=== PATIENT | female | born 1985 | race Caucasian/White ===

== ENCOUNTER 2018-05-05 14:35 | Emergency (ER) | payer OTHER ==
[~2018-05-05] VITALS: Wt 65.8 kg
[~2018-05-05 14:35] MED LIST: ANAPROX DS550 MG PO; ANUSOL-HC25 MG RC; ASACOL400 MG PO; BACTRIM DS 8001 TA1 PO; CLARITIN-D 12 H1 TAB PO; CLARITIN10 MG PO; CLEOCIN HCL150 MG PO; CLEOCIN150 MG PO; CLINDAMYCIN HC300 MG PO; CLINDAMYCIN150 MG PO; DARVOCET N 1001 TAB PO; DOXYCYCLINE MO100 MG PO; EES400 MG PO; FLAGYL500 MG PO; GAS-X80 MG PO; HYDROCODONE BIT1 T11 PO; IRON90 MG PO; KEFLEX500 MG PO; KEFTAB500 MG PO; LEVOFLOXACIN500 MG PO; METRONIDAZOLE500 MG PO; MOTRIN600 MG PO; MOTRIN800 MG PO; NKHM; PERCOGESIC EXTR1 TAB PO; PRENATAL 1 MG +1 TAB PO; PRILOSEC20 M2 PO; PROTONIX40 M1 IV; SEPTRA DS1 TAB PO; TRAMADOL HCL50 MG PO; ULTRAM50 MG PO; VICODIN 5/500 505 MG PO; VICODIN 500 MG-1 TAB PO; VICODIN ES 7501 TAB PO; ZOO CHEWS1 CTB PO; Zofran4 MG PO
[2018-05-05 16:39] LABS: BILIRUBIN NEGATIVE (NEGATIVE); BLOOD NEGATIVE (NEGATIVE); CLARITY SL CLOUDY (CLEAR); COLOR YELLOW (YELLOW); GLUCOSE NEGATIVE (NEGATIVE); KETONE TRACE (NEGATIVE); LEUKO ESTERASE NEGATIVE (NEGATIVE); NITRITE NEGATIVE (NEGATIVE); UROBILINOGEN 0.2 E.U./dl (0.2-1.0)
[2018-05-05 16:51] LABS: BACTERIA TRACE
[2018-05-05] MEDS ORDERED: CYCLOBENZAPRINE10 MG PO (17:00)
[2018-05-05] MEDS ORDERED: NAPROSYN500 MG PO (17:00)
[2018-05-05] MEDS ORDERED: PREDNISONE50 MG PO (17:00)
== END 2018-05-05 17:03 | disposition home or self-care (01) ==
LOC: ED 14:35
PROVIDERS: Nurse Practitioner Family
DX: M54.5 Low back pain (principal); M62.830 Muscle spasm of back; M62.89 Other specified disorders of muscle; Z88.0 Allergy status to penicillin; Z88.1 Allergy status to other antibiotic agents; Z91.041 Radiographic dye allergy status

== ENCOUNTER 2019-02-28 10:25 | Inpatient (IN) | payer OTHER ==
[~2019-02-28] VITALS: Ht 162.5 cm; Wt 59.5 kg
--- NOTE | ~2019-02-28 | CON ---
[place], [place] REPORT OF CONSULTATION NAME: ALLY BROWNING UNIT #: [id number] ROOM: 415 DOCTOR: VERENA GRIFFINDAYNA BIRTHDATE: [birth year] DOS: 02/28/2019 GASTROENDOSCOPIC REPORT HISTORY OF PRESENT ILLNESS: A 33-year-old patient who has presented with chief complaint of abdominal pain, diarrhea, cramp, undergoing investigation. The patient is telling me that she has a history of ulcerative colitis. I have not been able to document that. We referred to the old colonoscopy on 01/06/2015 and we found out benign esophageal stricture and in past had dilation. I have not been able to find detail result. White blood cell was 11, H and H of 11 and 34. Lactic acid was normal. Comprehensive metabolic panel, GFR greater than 60. Chemistry normal. Sed rate was 14. CT scan of the abdomen and pelvis, no acute process. PAST MEDICAL HISTORY: History of diverticulosis, history of esophageal stricture, status post benign dilation, back pain, dyspepsia, vertigo, and diabetes mellitus. PAST SURGICAL HISTORY: Hemorrhoid, appendix, bilateral tubal ligation, and colonoscopies. SOCIAL HISTORY: Nonsmoker, nonalcohol consumer. FAMILY HISTORY: Noncontributory. ALLERGIES: Multiple. MEDICATIONS: Listed. REVIEW OF SYSTEMS: HEENT: Denies double vision, blurred vision. RESPIRATORY: Denies shortness of breath. CARDIOVASCULAR: Denies chest pain. DIGESTIVE SYSTEM: Diarrhea, abdominal cramp. PHYSICAL EXAMINATION: VITAL SIGNS: Stable. HEENT: Within normal limits. NECK: Supple, no thyromegaly. CHEST: Symmetric anatomy, equal expansion. HEART: Normal sinus rhythm, no gallop, no murmur. ABDOMEN: Soft. No hepato-organomegaly. Bowel sounds present. EXTREMITIES: No cyanosis, no pedal edema. NEUROLOGIC: Alert, oriented to time, place. LABORATORY DATA: Reviewed. Records reviewed. IMPRESSION AND PLAN: Diarrhea, etiology to be defined. We are going to send stool for C. diff, stool culture, ova and parasite tomorrow. Stool sample has been collected already this evening. Also, we know that she has history of [place], [place] REPORT OF CONSULTATION NAME: ALLY BROWNING UNIT #: [id number] ROOM: [facility] DOCTOR: VERENA GRIFFIN,RUKHSANARAYNE BIRTHDATE: [birth year] diverticulosis. She is telling me she had ulcerative colitis. She has never been on the medication. I really doubt that has been the diagnosis at any time for her, however, we are under investigation. Once we rule out that she does not have infectious diagnosis, we will proceed with further studies. Furthermore, I am going to discontinue the cefepime that she is on rather we are going to start her on metronidazole 500 mg IV every 8 hours and we are going to give her something to eat till we decide the direction. If she stabilizes as far as her diarrhea, then we can discharge her and do an outpatient colonoscopy otherwise, we will see the etiology of culture and diarrhea. DAYNA ALBARADO MD CM:CONSTR:REPORT OF CONSULTATION 33 03/07/19 1014 interface
[~2019-02-28 10:25] MED LIST changes: +CYCLOBENZAPRINE10 MG PO; +NAPROSYN500 MG PO; +PREDNISONE10 MG PO; +PREDNISONE50 MG PO
[2019-02-28 10:29] VITALS: BP 110/70
[2019-02-28 10:57] LABS: BILIRUBIN NEGATIVE (NEGATIVE); BLOOD 3+ (NEGATIVE); CLARITY SL CLOUDY (CLEAR); COLOR YELLOW (YELLOW); GLUCOSE NEGATIVE (NEGATIVE); KETONE NEGATIVE (NEGATIVE); LEUKO ESTERASE TRACE (NEGATIVE); NITRITE NEGATIVE (NEGATIVE); PH >= 9.0 (5.0-9.0); UROBILINOGEN 0.2 E.U./dl (0.2-1.0)
[2019-02-28 11:13] LABS: RBC TNTC rbc/hpf (0-2)
[2019-02-28 11:14] LABS: BACTERIA 1+; EPITHELIAL CELLS 30-40
[2019-02-28 11:16] LABS: BASO % 0.4 % (0.0-1.0); EOS # 0.2 10*3/uL (0.0-0.4); EOS % 1.4 % (1.0-4.0); HEMATOCRIT 34.1 % (37.0-47.0); LYMPH # 1.7 10*3/uL (1.3-4.4); LYMPH % 15.1 % (27.0-41.0); MEAN CELL VOLUME 86.3 fl (81.0-99.0); MEAN CORPUSCULAR HGB 27.8 pg (27.0-31.0); MEAN CORPUSCULAR HGB CONC 32.3 g/dl (33.0-37.0); MEAN PLATELET VOLUME 11.3 fl (9.6-12.3); MONO # 0.9 10*3/uL (0.1-1.0); MONO % 7.8 % (3.0-9.0); NEUT # 8.2 10*3/uL (2.3-7.9); NEUT % 74.7 % (47.0-73.0); PLATELET COUNT AUTOMATED 214 10*3/uL (130-400); RED BLOOD COUNT 3.95 10*6/uL (4.10-5.10); RED CELL DISTRI WIDTH 13.4 % (0-14.5)
[2019-02-28 11:16] LABS: WBC 21-30 wbc/hpf (0-5)
[2019-02-28 11:32] LABS: ALBUMIN 3.3 gm/dl (3.1-4.5); ALKALINE PHOSPHATASE 48 U/L (45-117); BUN 12 mg/dl (7-24); CHLORIDE 110 mmol/L (98-107); CREATININE 0.93 mg/dL (0.55-1.02); LIPASE 158 U/L (73-393); POTASSIUM 3.5 mmol/L (3.5-5.1); SGOT/AST 16 IU/L (3-35); SGPT/ALT 20 U/L (12-78); SODIUM 139 mmol/L (136-145); TOTAL PROTEIN 6.7 gm/dL (6.4-8.2)
[2019-02-28 11:33] LABS: BETA-HCG, QUANT < 1.0 mIU/mL (1-3)
[2019-02-28 11:40] VITALS: BP 110/68
[2019-02-28 12:30] VITALS: BP 110/70
[2019-02-28 12:45] VITALS: BP 108/62
--- NOTE | 2019-02-28 12:45 | NUR ---
Time: 1244 A 33 year old FEMALE admitted to under services of GEOFFREY FERNANDEZ DO. Pt. arrived via wheel chair from ER. Chief complaint: ABDOMINAL PAIN,NAUSEA&VOMITTING. JAIRO BALDWIN
--- NOTE | 2019-02-28 13:49 | NUR ---
PATIENT MEDICATED WITH MORPHINE PER DRS ORDERS FOR COMPLAINTS OF ABDOMINAL PAIN 12/09. WILL MONITOR FOR RELIEF
[2019-02-28 16:00] VITALS: BP 105/66
--- NOTE | 2019-02-28 16:40 | NUR ---
BACK TO ROOM FROM CT.
[2019-02-28 20:00] VITALS: BP 103/61
--- NOTE | 2019-02-28 20:40 | NUR ---
ORDER TO ADD STOOL CULTURE TO LAB STUDIES AND STOP CEFIPIME BY . SEE ORDERS. CALL WITH RESULTS IN AM IF COLLECTED.
--- NOTE | 2019-02-28 23:00 | NUR ---
PATIENT RESTING IN BED, STATES HER ABDOMINAL PAIN COMES AND GOES, DENIED THE NEED FOR PAIN MEDICINE. IVF AND ANTIBIOTICS RUNNING. PATIENT LEFT WITH CALL LIGHT IN REACH.
[2019-03-01] VITALS: BP 108/58
--- NOTE | 2019-03-01 00:50 | NUR ---
24 HR chart check completed.
[2019-03-01 07:11] LABS: BUN 6 mg/dl (7-24); CHLORIDE 114 mmol/L (98-107); CHOLESTEROL 122 mg/dL (<200); CREATININE 0.91 mg/dL (0.55-1.02); HDL CHOLESTEROL 46 mg/dl (40-60); LDL CHOLESTEROL 61 mg/dL (9-159); POTASSIUM 3.7 mmol/L (3.5-5.1); SODIUM 142 mmol/L (136-145); TRIGLYCERIDES 73 mg/dl (<150); VLDL CHOLESTEROL 15 mg/dL (6-40)
[2019-03-01 07:17] LABS: BASO % 0.4 % (0.0-1.0); EOS # 0.3 10*3/uL (0.0-0.4); EOS % 3.7 % (1.0-4.0); HEMATOCRIT 30.5 % (37.0-47.0); HEMOGLOBIN 9.5 g/dl (12.0-16.0); LYMPH # 2.5 10*3/uL (1.3-4.4); LYMPH % 28.7 % (27.0-41.0); MEAN CELL VOLUME 89.2 fl (81.0-99.0); MEAN CORPUSCULAR HGB 27.8 pg (27.0-31.0); MEAN CORPUSCULAR HGB CONC 31.1 g/dl (33.0-37.0); MEAN PLATELET VOLUME 11.8 fl (9.6-12.3); MONO # 0.7 10*3/uL (0.1-1.0); MONO % 7.7 % (3.0-9.0); NEUT % 58.7 % (47.0-73.0); PLATELET COUNT AUTOMATED 169 10*3/uL (130-400); RED BLOOD COUNT 3.42 10*6/uL (4.10-5.10); RED CELL DISTRI WIDTH 13.9 % (0-14.5); WHITE BLOOD COUNT 8.6 10*3/uL (4.8-10.8)
[2019-03-01 08:00] VITALS: BP 102/55
[2019-03-01 08:02] LABS: VITAMIN D, 25-HYDROXY 29.1 ng/mL (30-100)
--- NOTE | 2019-03-01 08:33 | NUR ---
NOTIFIED DR ALBARADO OF AM LAB RESULTS AND REQUESTED A DIET ORDER FOR PT. ORDERS REC IEVED.PT TO F/U FOR OUTPATIENT COLO ON D/C.SPOKE WITH DR FANG REGARDING DIET ORDER AND FINE CRACKLES NOTED IN PB LUNG RAMOS.NORMAL SALINE INFUSING @ 100 ML/HR.
--- NOTE | 2019-03-01 10:00 | NUR ---
PT ATE BREAKFAST AND DENIES N/V AND ABDOMINAL PAIN.SEEMED TO TOLERATE WELL.
[2019-03-01 12:00] VITALS: BP 110/59
--- NOTE | 2019-03-01 13:49 | NUR ---
PT ATE LUNCH AND REPORTED NO C/O. DENIES N/V.NOTIFIED DR FANG PT HAD TOLERATED 2 MEALS WITHOUT C/O.
[2019-03-01 16:00] VITALS: BP 109/57
--- NOTE | 2019-03-01 18:02 | NUR ---
PATIENT COMPLAINTS OF HEADACHE 12/09. MEDICATED PER ORDER. VERBALIZED RELIEF. VOICES NO OTHER CONCERNS AT THIS TIME. CALL LIGHT WITH IN REACH. RESTING IN BED.
--- NOTE | 2019-03-01 19:45 | NUR ---
TYLENOL GIVEN PER PRN ORDER FOR C/O HEADACHE. SEE EMAR. RATED PAIN A 3/10 WITH 10 BEING THE WORST.
[2019-03-01 20:00] VITALS: BP 99/56
--- NOTE | 2019-03-01 23:41 | NUR ---
PATIENT REQUESTING PAIN MEDICATION FOR HEADACHE. NORCO ADMINISTERED PRESCRIBED. WILL MONITOR FOR EFFECTIVENESS.
[2019-03-02] VITALS: BP 102/50
--- NOTE | 2019-03-02 00:30 | NUR ---
PATIENT RESTING QUIETLY. MEDICATION APPEARS EFFECTIVE.
--- NOTE | 2019-03-02 01:43 | NUR ---
TUMS GIVEN FOR C/O DYSPEPSIA. PATIENT HAS HAD EMESIS OF MOSTLY LIQUID.
--- NOTE | 2019-03-02 01:56 | NUR ---
PATIENT MEDICATED WITH ZOFRAN PER PRN ODER FOR C/O NAUSEA. SEE EMAR,
[2019-03-02 06:06] LABS: BASO % 0.3 % (0.0-1.0); EOS # 0.2 10*3/uL (0.0-0.4); EOS % 2.1 % (1.0-4.0); HEMATOCRIT 32.8 % (37.0-47.0); HEMOGLOBIN 10.2 g/dl (12.0-16.0); LYMPH # 1.7 10*3/uL (1.3-4.4); LYMPH % 16.5 % (27.0-41.0); MEAN CELL VOLUME 89.1 fl (81.0-99.0); MEAN CORPUSCULAR HGB 27.7 pg (27.0-31.0); MEAN CORPUSCULAR HGB CONC 31.1 g/dl (33.0-37.0); MEAN PLATELET VOLUME 11.7 fl (9.6-12.3); MONO # 0.8 10*3/uL (0.1-1.0); MONO % 7.6 % (3.0-9.0); NEUT # 7.4 10*3/uL (2.3-7.9); NEUT % 72.9 % (47.0-73.0); PLATELET COUNT AUTOMATED 166 10*3/uL (130-400); RED BLOOD COUNT 3.68 10*6/uL (4.10-5.10); RED CELL DISTRI WIDTH 13.9 % (0-14.5); WHITE BLOOD COUNT 10.2 10*3/uL (4.8-10.8)
[2019-03-02 08:00] VITALS: BP 105/57
--- NOTE | 2019-03-02 08:35 | NUR ---
PATIENT COMPLAINS OF NAUSEA. MEDICATED PER ORDER WITH ZOFRAN. VOICES NO OTHER CONCERNS AT THIS TIME. RESTING IN BED. CALL LIGHT WITHIN REACH.
--- NOTE | 2019-03-02 09:37 | NUR ---
PATIENT COMPLAINS OF 6/10 ABDOMINAL PAIN. MEDICATED PER ORDER. VOICES NO OTHER CONCERNS AT THIS TIME. CALL LIGHT WITHIN REACH. PATIENT RESTING IN BED.
[2019-03-02] MEDS ORDERED: FLAGYL500 MG PO (12:12)
--- NOTE | 2019-03-02 13:29 | NUR ---
PATIENTS COMPLAINTS OF ABDOMINAL PAIN 11/08. MEDICATED PER ORDER. VERBALIZED RELIEF. VOICES NO OTHER NEEDS AT THIS TIME. CALL LIGHT WITHIN REACH. IN BED WATCHING TV AT THIS TIME.
--- NOTE | 2019-03-02 13:54 | NUR ---
Discharge instructions reviewed with patient/family. Patient receptive and verbalizes understanding. Follow-up care arranged. Written instructions given to patient/family. ZAC YOUNG
== END 2019-03-02 13:55 | disposition home or self-care (01) | DRG 392 ==
LOC: ED 10:25 → EDHOLD 11:57 → 4E 12:06
PROVIDERS: Emergency Medicine; Hospitalist; Internal Medicine; ADMIT Internal Medicine
DX: K52.9 Noninfective gastroenteritis and colitis, unspecified (principal); D64.9 Anemia, unspecified; D72.829 Elevated white blood cell count, unspecified; E87.8 Other disorders of electrolyte and fluid balance, not elsewhere classified; E83.41 Hypermagnesemia; K57.90 Diverticulosis of intestine, part unspecified, without perforation or abscess without bleeding; E11.9 Type 2 diabetes mellitus without complications; K21.9 Gastro-esophageal reflux disease without esophagitis; Z98.51 Tubal ligation status; Z82.49 Family history of ischemic heart disease and other diseases of the circulatory system; Z88.0 Allergy status to penicillin; Z88.8 Allergy status to other drugs, medicaments and biological substances; Z79.899 Other long term (current) drug therapy; Z91.041 Radiographic dye allergy status

== ENCOUNTER 2019-07-04 16:07 | Emergency (ER) | payer OTHER ==
[~2019-07-04] VITALS: Ht 162.5 cm; Wt 54.4 kg
[2019-07-04] MEDS ORDERED: TESSALON PERLE100 M1 PO (19:13)
[2019-07-04] MEDS ORDERED: IBUPROFEN600 MG PO (19:13)
== END 2019-07-04 19:23 | disposition home or self-care (01) ==
LOC: ED 16:07
DX: R50.9 Fever, unspecified (principal); R52 Pain, unspecified; R05 Cough; K21.9 Gastro-esophageal reflux disease without esophagitis; Z88.0 Allergy status to penicillin; Z88.1 Allergy status to other antibiotic agents; Z91.041 Radiographic dye allergy status

== ENCOUNTER 2019-07-09 16:08 | Emergency (ER) | payer OTHER ==
[~2019-07-09] VITALS: Ht 162.5 cm; Wt 59.0 kg
[~2019-07-09 16:08] MED LIST changes: +IBUPROFEN600 MG PO; +TESSALON PERLE100 M1 PO
[2019-07-09] MEDS ORDERED: PREDNISONE20 M1 PO (19:03)
[2019-07-09] MEDS ORDERED: PROAIR HFA8.5 GM INH (19:03)
== END 2019-07-09 19:16 | disposition home or self-care (01) ==
LOC: ED 16:08
DX: R05 Cough (principal); R06.02 Shortness of breath; K21.9 Gastro-esophageal reflux disease without esophagitis; Z88.0 Allergy status to penicillin; Z88.1 Allergy status to other antibiotic agents; Z91.041 Radiographic dye allergy status; Z79.899 Other long term (current) drug therapy

== ENCOUNTER 2019-09-07 18:58 | Emergency (ER) | payer OTHER ==
[~2019-09-07] VITALS: Ht 162.5 cm; Wt 54.4 kg
[~2019-09-07 18:58] MED LIST changes: +PREDNISONE20 M1 PO; +PROAIR HFA8.5 GM INH
[2019-09-07] MEDS ORDERED: FLONASE ALLERG9.9 ML NAS (20:36)
[2019-09-07] MEDS ORDERED: VIBRAMYCIN100 MG PO (20:36)
== END 2019-09-07 20:55 | disposition home or self-care (01) ==
LOC: ED 18:58
DX: J32.9 Chronic sinusitis, unspecified (principal); Z88.0 Allergy status to penicillin; Z88.8 Allergy status to other drugs, medicaments and biological substances; Z79.2 Long term (current) use of antibiotics; Z79.899 Other long term (current) drug therapy

== ENCOUNTER 2019-10-26 16:34 | Emergency (ER) | payer OTHER ==
[~2019-10-26] VITALS: Ht 162.5 cm; Wt 59.0 kg
[~2019-10-26 16:34] MED LIST changes: +FLONASE ALLERG9.9 ML NAS; +VIBRAMYCIN100 MG PO
[2019-10-26] MEDS ORDERED: PRILOSEC20 M1 PO (17:13)
[2019-10-26] MEDS ORDERED: CLINDAMYCIN HC300 MG PO (17:13)
== END 2019-10-26 17:15 | disposition home or self-care (01) ==
LOC: ED 16:34
DX: K02.9 Dental caries, unspecified (principal); Z79.899 Other long term (current) drug therapy; Z88.0 Allergy status to penicillin; Z88.8 Allergy status to other drugs, medicaments and biological substances

== ENCOUNTER 2020-04-15 10:31 | Emergency (ER) | payer OTHER ==
[~2020-04-15] VITALS: Wt 61.7 kg
[~2020-04-15 10:31] MED LIST changes: +PRILOSEC20 M1 PO
[2020-04-15] MEDS ORDERED: IBUPROFEN600 MG PO (12:13)
== END 2020-04-15 12:15 | disposition home or self-care (01) ==
LOC: ED 10:31
DX: B27.90 Infectious mononucleosis, unspecified without complication (principal); Z88.0 Allergy status to penicillin; Z88.8 Allergy status to other drugs, medicaments and biological substances; Z79.899 Other long term (current) drug therapy

== ENCOUNTER 2020-06-08 22:27 | Inpatient (IN) | payer OTHER ==
[~2020-06-08] VITALS: Ht 162.6 cm; Wt 58.1 kg
[2020-06-08 22:38] VITALS: BP 109/70
[2020-06-08 23:45] LABS: BASO % 0.2 % (0.0-1.0); EOS # 0.1 10*3/uL (0.0-0.4); EOS % 0.6 % (1.0-4.0); HEMATOCRIT 35.3 % (37.0-47.0); LYMPH # 1.1 10*3/uL (1.3-4.4); LYMPH % 7.9 % (27.0-41.0); MEAN CELL VOLUME 85.7 fl (81.0-99.0); MEAN CORPUSCULAR HGB 26.9 pg (27.0-31.0); MEAN CORPUSCULAR HGB CONC 31.4 g/dl (33.0-37.0); MONO # 0.6 10*3/uL (0.1-1.0); MONO % 3.9 % (3.0-9.0); NEUT # 12.5 10*3/uL (2.3-7.9); NEUT % 86.9 % (47.0-73.0); PLATELET COUNT AUTOMATED 235 10*3/uL (130-400); RED BLOOD COUNT 4.12 10*6/uL (4.10-5.10); RED CELL DISTRI WIDTH 14.2 % (0-14.5); WHITE BLOOD COUNT 14.4 10*3/uL (4.8-10.8)
[2020-06-09 00:01] LABS: ALBUMIN 3.4 gm/dl (3.1-4.5); ALKALINE PHOSPHATASE 72 U/L (45-117); BUN 16 mg/dl (7-24); CHLORIDE 107 mmol/L (98-107); CREATININE 0.87 mg/dL (0.55-1.02); LIPASE 145 U/L (73-393); POTASSIUM 4.1 mmol/L (3.5-5.1); SGOT/AST 31 IU/L (3-35); SGPT/ALT 30 U/L (12-78); SODIUM 138 mmol/L (136-145); TOTAL PROTEIN 7.3 gm/dL (6.4-8.2)
[2020-06-09 00:43] LABS: BILIRUBIN Negative (Negative); BLOOD Negative (Negative); CLARITY Clear (Clear); COLOR Yellow (Yellow); GLUCOSE Negative (Negative); KETONE Negative (Negative); LEUKO ESTERASE Negative (Negative); NITRITE Negative (Negative); SPECIFIC GRAVITY 1.015 (1.001-1.030); UROBILINOGEN 0.2 E.U./dl (0.0-1.0)
[2020-06-09 00:54] LABS: BACTERIA 1+; EPITHELIAL CELLS 21-30; RBC 0-2 rbc/hpf (0-2); WBC 0-2 wbc/hpf (0-5)
[2020-06-09 01:22] VITALS: BP 110/72
[2020-06-09 03:31] LABS: BASO % 0.3 % (0.0-1.0); EOS % 0.1 % (1.0-4.0); HEMATOCRIT 34.4 % (37.0-47.0); LYMPH # 1.5 10*3/uL (1.3-4.4); LYMPH % 11.1 % (27.0-41.0); MEAN CELL VOLUME 85.6 fl (81.0-99.0); MEAN CORPUSCULAR HGB 26.4 pg (27.0-31.0); MEAN CORPUSCULAR HGB CONC 30.8 g/dl (33.0-37.0); MEAN PLATELET VOLUME 11.3 fl (9.6-12.3); MONO # 0.6 10*3/uL (0.1-1.0); MONO % 4.3 % (3.0-9.0); NEUT # 11.7 10*3/uL (2.3-7.9); NEUT % 83.8 % (47.0-73.0); PLATELET COUNT AUTOMATED 229 10*3/uL (130-400); RED BLOOD COUNT 4.02 10*6/uL (4.10-5.10); RED CELL DISTRI WIDTH 14.1 % (0-14.5); WHITE BLOOD COUNT 13.9 10*3/uL (4.8-10.8)
--- NOTE | 2020-06-09 03:44 | NUR ---
CLAIRIFIED WITH ABOUT THE CEFIPINE AND MADE AWARE. LISA COCHRAN RN
[2020-06-09 03:47] LABS: ALBUMIN 3.5 gm/dl (3.1-4.5); ALKALINE PHOSPHATASE 71 U/L (45-117); BUN 14 mg/dl (7-24); CHLORIDE 108 mmol/L (98-107); CREATININE 0.81 mg/dL (0.55-1.02); POTASSIUM 3.6 mmol/L (3.5-5.1); SGOT/AST 24 IU/L (3-35); SGPT/ALT 33 U/L (12-78); SODIUM 140 mmol/L (136-145); TOTAL PROTEIN 7.3 gm/dL (6.4-8.2)
[2020-06-09 07:43] LABS: VITAMIN D, 25-HYDROXY 33.2 ng/mL (30-100)
[2020-06-09 08:31] VITALS: BP 100/40
--- NOTE | 2020-06-09 08:32 | NUR ---
PT ASSISTED UP TO BR---MAK LAMBERT RN
--- NOTE | 2020-06-09 10:10 | NUR ---
Time: 1009 A 35 year old FEMALE admitted to 5E under services of NINI LOPEZ DO Pt. arrived via stretcher from ER. Chief complaint: ABD PAIN . MICHA JACKSON
[2020-06-09] MEDS ORDERED: PEPCID20 MG PO (10:26)
[2020-06-09] MEDS ORDERED: IBGARD90 MG PO (10:26)
--- NOTE | 2020-06-09 11:14 | NUR ---
dr myrick and dr zaragoza here to see pt
[2020-06-09 12:00] VITALS: BP 102/54
--- NOTE | 2020-06-09 13:49 | NUR ---
RAHEEM-S in to talk to patient. Patient states lives at home with father. There are 8 steps in the home. Physician: Dominic Lopez Pharmacy: [facility] Home health services: no Patient's level of ADLs: INDEPENDENT Patient has working utilities: yes DME: none Follow-up physician's appointment after d/c: [facility] Does patient want to access [facility]?: no Discharge plan Pt resides with her father. Anticipate no discharge needs.. HAN ADAMS
--- NOTE | 2020-06-09 14:06 | NUR ---
PT REQUESTED AND GIVEN NORCO FOR C/O ABD PAIN PT RATES PAIN 5/10 WILL MONITOR
--- NOTE | 2020-06-09 15:00 | NUR ---
PT STATES THAT [employer] HELPED WILL MONITOR
[2020-06-09 16:00] VITALS: BP 11/49; BP 111/49
[2020-06-09 20:00] VITALS: BP 111/63
--- NOTE | 2020-06-09 20:20 | NUR ---
RESTING IN BED WITH NO DISTRESS NOTED. RESPIRATIONS EASY. LUNGS DIMINISHED, CLEAR. PULSE OX 98% RA. ABD SOFT WITH HYPO BOWEL SOUNDS, C/O DIARRHEA AND LOWER ABD PAIN. CALL LIGHT WITHIN REACH. NO VOICED COMPLAINTS
--- NOTE | 2020-06-09 20:46 | NUR ---
24 HR chart check completed.
--- NOTE | 2020-06-09 21:17 | NUR ---
MEDICATED WITH NORCO PER PRN ORDER FOR COMPLAINTS OF LOWER ABD PAIN RATING A 6. CALL LIGHT WITHIN REACH. WILL MONITOR
--- NOTE | 2020-06-09 22:00 | NUR ---
STATES RELIEF FROM EARLIER NORCO. CALL LIGHT WITHIN REACH.
[2020-06-10] VITALS: BP 106/53
--- NOTE | 2020-06-10 | NUR ---
SLEEPING. NO S/S DISTRESS. RESPIRATIONS EASY. VSS. CALL LIGHT WITHIN REACH
--- NOTE | 2020-06-10 02:53 | NUR ---
MEDICATED WITH NORCO PER PRN ORDER FOR COMPLAINTS OF ABD PAIN RATING A 4. WILL MONITOR
--- NOTE | 2020-06-10 03:30 | NUR ---
STATES RELIEF FROM EARLIER MEDS
[2020-06-10 06:14] LABS: BASO % 0.3 % (0.0-1.0); EOS # 0.3 10*3/uL (0.0-0.4); EOS % 4.2 % (1.0-4.0); HEMATOCRIT 31.9 % (37.0-47.0); LYMPH # 2.8 10*3/uL (1.3-4.4); LYMPH % 35.6 % (27.0-41.0); MEAN CELL VOLUME 87.6 fl (81.0-99.0); MEAN CORPUSCULAR HGB 26.6 pg (27.0-31.0); MEAN CORPUSCULAR HGB CONC 30.4 g/dl (33.0-37.0); MEAN PLATELET VOLUME 11.4 fl (9.6-12.3); MONO # 0.5 10*3/uL (0.1-1.0); MONO % 6.8 % (3.0-9.0); NEUT # 4.1 10*3/uL (2.3-7.9); NEUT % 52.8 % (47.0-73.0); PLATELET COUNT AUTOMATED 190 10*3/uL (130-400); RED BLOOD COUNT 3.64 10*6/uL (4.10-5.10); RED CELL DISTRI WIDTH 14.4 % (0-14.5); WHITE BLOOD COUNT 7.8 10*3/uL (4.8-10.8)
[2020-06-10 06:25] LABS: BUN 11 mg/dl (7-24); CHLORIDE 109 mmol/L (98-107); POTASSIUM 3.7 mmol/L (3.5-5.1); SODIUM 139 mmol/L (136-145)
[2020-06-10 08:00] VITALS: BP 104/55
--- NOTE | 2020-06-10 09:16 | NUR ---
In reviewing pt's H&P, read that pt is unable to obtain Linzess for her IBS due to the high cost. A call was placed to [facility] pharmacy to confirm that Linzess is covered under the 340B program, which it is. Met with pt to discuss this. Explained the program to pt. Pt is agreeable to follow-up at the [facility] and use the [facility] outpt pharmacy. Will inform hospitalist of this.
--- NOTE | 2020-06-10 10:26 | NUR ---
PT REQUESTED AND GIVEN ZOFRAN FOR C/O NAUSEA. WILL MONITOR
--- NOTE | 2020-06-10 10:59 | NUR ---
[place] in morning meeting that [facility], where pt follows for PCP, should have 340B program. Confirmed that [facility] is affiliated with [facility] which has the 340B program. Spoke to pharmacist at [facility] who confirmed that pt would need script from [facility] for Linzess to be covered under 340B. Will inform pt of this.
--- NOTE | 2020-06-10 11:00 | NUR ---
PT STATES THAT ZOFRAN DID NOT HELP WILL MONITOR
[2020-06-10 12:00] VITALS: BP 118/63
--- NOTE | 2020-06-10 14:23 | NUR ---
PT GIVEN EXTRA DOSE OF ZOFRAN FOR C/O NAUSEA WILL MONITOR
--- NOTE | 2020-06-10 14:52 | NUR ---
Met with pt and informed her of the 340B program through [employer] [facility] and [facility]. Pt stated that she would rather be followed at the [facility] and [facility] Out[facility].
--- NOTE | 2020-06-10 15:00 | NUR ---
PT STATES THAT ZOFRAN HELPED A LITTLE
[2020-06-10 16:00] VITALS: BP 111/52
--- NOTE | 2020-06-10 16:38 | NUR ---
PT REQUESTED AND GIVEN NORCO FOR C/O ABD PAIN WILL MONITOR
--- NOTE | 2020-06-10 17:10 | NUR ---
PT STATES THAT [employer] HELPED WILL MONITOR
[2020-06-10 20:00] VITALS: BP 115/57
--- NOTE | 2020-06-10 20:53 | NUR ---
PT RESTING IN BED. RESP-EASY AND REGULAR. C/O NAUSEA, MEDICATED WITH ZOFRAN IV PER PRN ORDER SEE EMAR. EXPLAINED NPO STATUS AFTER MIDNIGHT TO PT. CALL LIGHT IN REACH.
--- NOTE | 2020-06-10 21:50 | NUR ---
PT RESTING IN BED. NO NEW C/O. PT SLOWLY DRINKING PREP FOR TOMORROW. SHE HAD ALREADY DRANK HALF OF BOTTLE. STATES STILL NAUSEOUS AND MEDICATING PER EMAR.
[2020-06-11] VITALS (7 sets, daily range): BP systolic 111–128; BP diastolic 55–74
--- NOTE | 2020-06-11 01:00 | NUR ---
RESTING IN BED. PT UP TO BATHROOM NOTED SMALL AMOUNT RED BLOOD ON TOILET PAPER WHEN WIPED. YELLOW LIQUID STOOL NOTED IN COMMODE. NO C/O AT THIS TIME. CALL LIGHT IN REACH. SEE SHIFT ASSESSMENT.
--- NOTE | 2020-06-11 06:00 | NUR ---
SLEEPING IN BED. AWAKENS EASILY. PT UP TO BATHROOM WITH LIQUID CLEAR BM. NO C/O AT THIS TIME. CALL LIGHT IN REACH. BACK IN BED AT THIS TIME.
[2020-06-11 06:38] LABS: BASO % 0.4 % (0.0-1.0); EOS # 0.3 10*3/uL (0.0-0.4); EOS % 3.3 % (1.0-4.0); HEMATOCRIT 32.9 % (37.0-47.0); LYMPH # 2.4 10*3/uL (1.3-4.4); LYMPH % 25.7 % (27.0-41.0); MEAN CELL VOLUME 86.4 fl (81.0-99.0); MEAN CORPUSCULAR HGB 26.5 pg (27.0-31.0); MEAN CORPUSCULAR HGB CONC 30.7 g/dl (33.0-37.0); MEAN PLATELET VOLUME 11.5 fl (9.6-12.3); MONO # 0.7 10*3/uL (0.1-1.0); MONO % 7.9 % (3.0-9.0); NEUT # 5.8 10*3/uL (2.3-7.9); NEUT % 62.3 % (47.0-73.0); PLATELET COUNT AUTOMATED 203 10*3/uL (130-400); RED BLOOD COUNT 3.81 10*6/uL (4.10-5.10); RED CELL DISTRI WIDTH 14.2 % (0-14.5); WHITE BLOOD COUNT 9.3 10*3/uL (4.8-10.8)
[2020-06-11 06:50] LABS: BUN 9 mg/dl (7-24); CHLORIDE 108 mmol/L (98-107); CREATININE 0.82 mg/dL (0.55-1.02); POTASSIUM 3.5 mmol/L (3.5-5.1); SODIUM 140 mmol/L (136-145)
--- NOTE | 2020-06-11 11:56 | NUR ---
Attempted to meet with pt this AM. However, pt was out of the room for a procedure.
[2020-06-11] MEDS ORDERED: SULFASALAZINE500 M1 PO (13:02)
[2020-06-11] MEDS ORDERED: NATURE'S BLEND F1 MG PO (13:02)
--- NOTE | 2020-06-11 13:11 | NUR ---
Spoke with Pt. in her room regarding Follow up importance at [facility]. Pt. to follow with [facility] for Her Linzess Rx. Pt. will need script at [facility] at discharge.
[2020-06-11] MEDS ORDERED: IBGARD90 MG PO (15:52)
[2020-06-11] MEDS ORDERED: LINZESS145 MC1 PO (15:52)
[2020-06-11] MEDS ORDERED: PEPCID20 MG PO (15:52)
--- NOTE | 2020-06-11 19:14 | NUR ---
Discharge instructions reviewed with patient/family. Patient receptive and verbalizes understanding. Follow-up care arranged. Written instructions given to patient/family. SABINO RUTH
== END 2020-06-11 19:14 | disposition home or self-care (01) | DRG 392 ==
LOC: ED 22:27 → 5E 06-09 01:59 → EDHOLD 06-09 01:59 → 5E 06-09 08:24
PROVIDERS: Emergency Medicine; Hospitalist; Internal Medicine; Student in an Organized Health Care Education/Training Program; ADMIT Internal Medicine; ATTEND Internal Medicine
PROC: 0DBN8ZX Excision of Sigmoid Colon, Via Natural or Artificial Opening Endoscopic, Diagnostic (ICD-10-PCS; principal; 2020-06-11)
DX: K52.9 Noninfective gastroenteritis and colitis, unspecified (principal); K92.1 Melena; K57.30 Diverticulosis of large intestine without perforation or abscess without bleeding; D64.9 Anemia, unspecified; R73.9 Hyperglycemia, unspecified; R74.8 Abnormal levels of other serum enzymes; Z98.51 Tubal ligation status; Z88.0 Allergy status to penicillin; Z88.1 Allergy status to other antibiotic agents; Z88.8 Allergy status to other drugs, medicaments and biological substances; Z82.49 Family history of ischemic heart disease and other diseases of the circulatory system; Z79.899 Other long term (current) drug therapy; D72.829 Elevated white blood cell count, unspecified

== ENCOUNTER 2020-08-14 15:31 | Emergency (ER) | payer OTHER ==
[~2020-08-14] VITALS: Ht 162.5 cm; Wt 56.7 kg
[~2020-08-14 15:31] MED LIST changes: +IBGARD90 MG PO; +LINZESS145 MC1 PO; +NATURE'S BLEND F1 MG PO; +PEPCID20 MG PO; +SULFASALAZINE500 M1 PO
[2020-08-14 17:04] LABS: BASO % 0.4 % (0.0-1.0); EOS # 0.2 10*3/uL (0.0-0.4); EOS % 2.5 % (1.0-4.0); HEMATOCRIT 36.9 % (37.0-47.0); LYMPH # 1.8 10*3/uL (1.3-4.4); LYMPH % 24.3 % (27.0-41.0); MEAN CELL VOLUME 83.3 fl (81.0-99.0); MEAN CORPUSCULAR HGB 25.7 pg (27.0-31.0); MEAN CORPUSCULAR HGB CONC 30.9 g/dl (33.0-37.0); MEAN PLATELET VOLUME 11.4 fl (9.6-12.3); MONO # 0.6 10*3/uL (0.1-1.0); MONO % 7.8 % (3.0-9.0); NEUT # 4.7 10*3/uL (2.3-7.9); NEUT % 64.7 % (47.0-73.0); PLATELET COUNT AUTOMATED 195 10*3/uL (130-400); RED BLOOD COUNT 4.43 10*6/uL (4.10-5.10); RED CELL DISTRI WIDTH 14.5 % (0-14.5); WHITE BLOOD COUNT 7.3 10*3/uL (4.8-10.8)
[2020-08-14 17:09] LABS: BILIRUBIN Negative (Negative); BLOOD Negative (Negative); CLARITY Clear (Clear); COLOR Yellow (Yellow); GLUCOSE Negative (Negative); KETONE Negative (Negative); LEUKO ESTERASE Negative (Negative); NITRITE Negative (Negative); SPECIFIC GRAVITY <= 1.005 (1.001-1.030); UROBILINOGEN 0.2 E.U./dl (0.0-1.0)
[2020-08-14 17:17] LABS: BACTERIA TRACE; RBC 0-2 rbc/hpf (0-2); WBC 0-2 wbc/hpf (0-5)
[2020-08-14 17:20] LABS: ALBUMIN 3.8 gm/dl (3.1-4.5); ALKALINE PHOSPHATASE 66 U/L (45-117); BUN 10 mg/dl (7-24); CHLORIDE 109 mmol/L (98-107); CREATININE 0.92 mg/dL (0.55-1.02); POTASSIUM 3.5 mmol/L (3.5-5.1); SGOT/AST 25 IU/L (3-35); SGPT/ALT 32 U/L (12-78); SODIUM 139 mmol/L (136-145); TOTAL PROTEIN 8.2 gm/dL (6.4-8.2)
== END 2020-08-14 18:00 | disposition home or self-care (01) ==
LOC: ED 15:31
PROVIDERS: Physician Assistant
DX: H53.8 Other visual disturbances (principal); K21.9 Gastro-esophageal reflux disease without esophagitis; Z88.0 Allergy status to penicillin; Z88.8 Allergy status to other drugs, medicaments and biological substances; Z79.899 Other long term (current) drug therapy; Z98.51 Tubal ligation status

== ENCOUNTER 2021-03-19 14:51 | Emergency (ER) | payer OTHER ==
[~2021-03-19] VITALS: Ht 162.5 cm; Wt 60.3 kg
== END 2021-03-19 22:35 | disposition home or self-care (01) ==
LOC: ED 14:51
DX: U07.1 COVID-19 (principal); Z79.899 Other long term (current) drug therapy; Z88.0 Allergy status to penicillin; Z88.1 Allergy status to other antibiotic agents; Z91.041 Radiographic dye allergy status

== ENCOUNTER 2021-11-20 04:18 | Inpatient (IN) | payer OTHER ==
[~2021-11-20] VITALS: Ht 162.6 cm; Wt 54.6 kg
[2021-11-20] VITALS (7 sets, daily range): BP systolic 92–119; BP diastolic 55–72
[2021-11-20 05:47] LABS: ALKALINE PHOSPHATASE 127 U/L (45-117); BUN 18 mg/dl (7-24); CHLORIDE 106 mmol/L (98-107); POTASSIUM 3.7 mmol/L (3.5-5.1); SGOT/AST 30 IU/L (3-35); SGPT/ALT 48 U/L (12-78); SODIUM 137 mmol/L (136-145); TOTAL PROTEIN 7.6 gm/dL (6.4-8.2)
[2021-11-20 06:01] LABS: BASO % 0.3 % (0.0-1.0); EOS # 0.1 10*3/uL (0.0-0.4); EOS % 0.9 % (1.0-4.0); HEMATOCRIT 36.9 % (37.0-47.0); LYMPH # 1.6 10*3/uL (1.3-4.4); LYMPH % 11.5 % (27.0-41.0); MEAN CELL VOLUME 88.1 fl (81.0-99.0); MEAN CORPUSCULAR HGB 28.4 pg (27.0-31.0); MEAN CORPUSCULAR HGB CONC 32.2 g/dl (33.0-37.0); MEAN PLATELET VOLUME 11.5 fl (9.6-12.3); MONO # 0.8 10*3/uL (0.1-1.0); MONO % 5.6 % (3.0-9.0); NEUT # 11.2 10*3/uL (2.3-7.9); NEUT % 80.9 % (47.0-73.0); PLATELET COUNT AUTOMATED 172 10*3/uL (130-400); RED BLOOD COUNT 4.19 10*6/uL (4.10-5.10); RED CELL DISTRI WIDTH 14.9 % (0-14.5); WHITE BLOOD COUNT 13.9 10*3/uL (4.8-10.8)
[2021-11-21] VITALS: BP 96/46
[2021-11-21 05:36] LABS: BUN 9 mg/dl (7-24); CHLORIDE 112 mmol/L (98-107); CREATININE 0.71 mg/dL (0.55-1.02); POTASSIUM 3.8 mmol/L (3.5-5.1); SODIUM 141 mmol/L (136-145)
[2021-11-21 06:31] LABS: BASO % 0.1 % (0.0-1.0); LYMPH # 1.1 10*3/uL (1.3-4.4); LYMPH % 7.6 % (27.0-41.0); MEAN CORPUSCULAR HGB 28.4 pg (27.0-31.0); MEAN CORPUSCULAR HGB CONC 32.3 g/dl (33.0-37.0); MEAN PLATELET VOLUME 11.9 fl (9.6-12.3); MONO # 0.6 10*3/uL (0.1-1.0); NEUT % 87.7 % (47.0-73.0); PLATELET COUNT AUTOMATED 174 10*3/uL (130-400); RED BLOOD COUNT 3.41 10*6/uL (4.10-5.10); WHITE BLOOD COUNT 14.8 10*3/uL (4.8-10.8)
[2021-11-21 08:00] VITALS: BP 94/53
[2021-11-21 12:00] VITALS: BP 108/59
[2021-11-21 16:00] VITALS: BP 91/46
[2021-11-21 20:00] VITALS: BP 107/63
[2021-11-21 21:37] LABS: BILIRUBIN Negative (Negative); BLOOD Negative (Negative); CLARITY Clear (Clear); COLOR Yellow (Yellow); GLUCOSE Negative (Negative); KETONE Negative (Negative); LEUKO ESTERASE Negative (Negative); NITRITE Negative (Negative); PH 6.5 (4.5-8.0); UROBILINOGEN 0.2 E.U./dl (0.0-1.0)
[2021-11-21 21:47] LABS: RBC 0-2 rbc/hpf (0-2)
[2021-11-21 21:49] LABS: BACTERIA TRACE; EPITHELIAL CELLS 0-2; WBC 0-2 wbc/hpf (0-5)
[2021-11-22] VITALS: BP 105/54
[2021-11-22 08:00] VITALS: BP 117/53
[2021-11-22 09:44] LABS: BASO % 0.1 % (0.0-1.0); HEMATOCRIT 30.1 % (37.0-47.0); LYMPH # 1.6 10*3/uL (1.3-4.4); LYMPH % 10.8 % (27.0-41.0); MEAN CELL VOLUME 87.5 fl (81.0-99.0); MEAN CORPUSCULAR HGB 28.8 pg (27.0-31.0); MEAN CORPUSCULAR HGB CONC 32.9 g/dl (33.0-37.0); MEAN PLATELET VOLUME 12.5 fl (9.6-12.3); MONO # 0.8 10*3/uL (0.1-1.0); MONO % 5.3 % (3.0-9.0); NEUT # 12.6 10*3/uL (2.3-7.9); NEUT % 83.3 % (47.0-73.0); PLATELET COUNT AUTOMATED 193 10*3/uL (130-400); RED BLOOD COUNT 3.44 10*6/uL (4.10-5.10); RED CELL DISTRI WIDTH 15.1 % (0-14.5); WHITE BLOOD COUNT 15.2 10*3/uL (4.8-10.8)
[2021-11-22 12:00] VITALS: BP 91/40
[2021-11-22] MEDS ORDERED: PREDNISONE10 MG PO (13:17)
[2021-11-22] MEDS ORDERED: SULFASALAZINE500 M1 PO (13:17)
[2021-11-22 16:00] VITALS: BP 107/57
== END 2021-11-22 20:35 | disposition home or self-care (01) | DRG 386 ==
LOC: ED 04:18 → EDHOLD 07:25 → 4E 07:25
PROVIDERS: Emergency Medicine; Internal Medicine; Student in an Organized Health Care Education/Training Program; ADMIT Student in an Organized Health Care Education/Training Program; ATTEND Student in an Organized Health Care Education/Training Program
DX: K51.911 Ulcerative colitis, unspecified with rectal bleeding (principal); E44.0 Moderate protein-calorie malnutrition; D64.9 Anemia, unspecified; R73.9 Hyperglycemia, unspecified; R00.1 Bradycardia, unspecified; Z68.20 Body mass index [BMI] 20.0-20.9, adult; R74.8 Abnormal levels of other serum enzymes; Z82.49 Family history of ischemic heart disease and other diseases of the circulatory system; Z88.0 Allergy status to penicillin; Z88.1 Allergy status to other antibiotic agents; Z88.8 Allergy status to other drugs, medicaments and biological substances; Z79.899 Other long term (current) drug therapy; Z98.51 Tubal ligation status

== ENCOUNTER 2022-01-30 18:34 | Emergency (ER) | payer OTHER ==
[~2022-01-30] VITALS: Ht 162.5 cm; Wt 57.2 kg
== END 2022-01-30 19:41 | disposition home or self-care (01) ==
LOC: ED 18:34
DX: M79.662 Pain in left lower leg (principal); M79.652 Pain in left thigh; Z88.0 Allergy status to penicillin; Z88.1 Allergy status to other antibiotic agents; Z88.8 Allergy status to other drugs, medicaments and biological substances; Z91.041 Radiographic dye allergy status; Z79.899 Other long term (current) drug therapy; Z98.51 Tubal ligation status

== ENCOUNTER 2022-03-21 18:02 | Inpatient (IN) | payer OTHER ==
[~2022-03-21] VITALS: Ht 162.5 cm; Wt 57.8 kg
[2022-03-21 18:41] VITALS: BP 110/91
[2022-03-21] MEDS ORDERED: OMEPRAZOLE40 MG PO (18:43)
[2022-03-21 20:36] LABS: BILIRUBIN Negative (Negative); BLOOD 1+ (Negative); CLARITY Cloudy (Clear); COLOR Dark Yellow (Yellow); GLUCOSE Negative (Negative); KETONE 2+ (Negative); LEUKO ESTERASE Trace (Negative); NITRITE Negative (Negative); SPECIFIC GRAVITY >= 1.030 (1.001-1.030)
[2022-03-21 20:47] LABS: BASO % 0.2 % (0.0-1.0); EOS % 0.2 % (1.0-4.0); HEMATOCRIT 37.2 % (37.0-47.0); LYMPH # 0.9 10*3/uL (1.3-4.4); LYMPH % 6.9 % (27.0-41.0); MEAN CELL VOLUME 88.8 fl (81.0-99.0); MEAN CORPUSCULAR HGB 28.2 pg (27.0-31.0); MEAN CORPUSCULAR HGB CONC 31.7 g/dl (33.0-37.0); MEAN PLATELET VOLUME 11.3 fl (9.6-12.3); MONO # 0.5 10*3/uL (0.1-1.0); MONO % 3.7 % (3.0-9.0); NEUT # 11.4 10*3/uL (2.3-7.9); NEUT % 88.6 % (47.0-73.0); PLATELET COUNT AUTOMATED 212 10*3/uL (130-400); RED BLOOD COUNT 4.19 10*6/uL (4.10-5.10); RED CELL DISTRI WIDTH 13.4 % (0-14.5); WHITE BLOOD COUNT 12.8 10*3/uL (4.8-10.8)
[2022-03-21 20:53] LABS: BACTERIA 1+; CALCIUM OXALATE CRYSTALS 1+; MUCOUS 1+
[2022-03-21 21:03] LABS: ALKALINE PHOSPHATASE 81 U/L (45-117); BUN 15 mg/dl (7-24); CHLORIDE 108 mmol/L (98-107); CREATININE 0.94 mg/dL (0.55-1.02); LIPASE 230 U/L (73-393); POTASSIUM 3.8 mmol/L (3.5-5.1); SGOT/AST 19 IU/L (3-35); SGPT/ALT 25 U/L (12-78); SODIUM 140 mmol/L (136-145)
[2022-03-21 23:50] VITALS: BP 98/40
[2022-03-22] VITALS: BP 122/62
[2022-03-22 06:09] LABS: ALKALINE PHOSPHATASE 60 U/L (45-117); BUN 10 mg/dl (7-24); CHLORIDE 113 mmol/L (98-107); CREATININE 0.71 mg/dL (0.55-1.02); POTASSIUM 4.1 mmol/L (3.5-5.1); SGOT/AST 12 IU/L (3-35); SGPT/ALT 19 U/L (12-78); SODIUM 141 mmol/L (136-145); TOTAL PROTEIN 6.2 gm/dL (6.4-8.2)
[2022-03-22 06:22] LABS: FREE T4 1.02 ng/dl (0.76-1.46); THYROID STIM HORMONE (HS) 0.387 uIU/ml (0.358-4.75)
[2022-03-22 06:24] LABS: HEMATOCRIT 31.5 % (37.0-47.0); MEAN CELL VOLUME 88.5 fl (81.0-99.0); MEAN CORPUSCULAR HGB 28.4 pg (27.0-31.0); MEAN CORPUSCULAR HGB CONC 32.1 g/dl (33.0-37.0); MEAN PLATELET VOLUME 11.9 fl (9.6-12.3); PLATELET COUNT AUTOMATED 202 10*3/uL (130-400); RED BLOOD COUNT 3.56 10*6/uL (4.10-5.10); RED CELL DISTRI WIDTH 13.2 % (0-14.5); WHITE BLOOD COUNT 8.6 10*3/uL (4.8-10.8)
[2022-03-22 06:26] LABS: MANUAL DIFF REFLEX YES
[2022-03-22 07:32] LABS: OVALOCYTES FEW; PLATELET SUFFICIENCY NORMAL (NORMAL); POLYCHROMASIA SLIGHT; TOTAL CELLS COUNTED 100 #CELLS; TOXIC GRANULATION SLIGHT
[2022-03-22 07:35] LABS: VITAMIN D, 25-HYDROXY 47.7 ng/mL (30-100)
[2022-03-22 08:00] VITALS: BP 95/50
[2022-03-22 12:00] VITALS: BP 106/86
[2022-03-22 16:00] VITALS: BP 111/57
[2022-03-22 20:00] VITALS: BP 103/48
[2022-03-23] VITALS: BP 121/67
[2022-03-23 06:19] LABS: BASO % 0.2 % (0.0-1.0); HEMATOCRIT 30.9 % (37.0-47.0); LYMPH # 1.3 10*3/uL (1.3-4.4); LYMPH % 12.6 % (27.0-41.0); MEAN CELL VOLUME 89.6 fl (81.0-99.0); MEAN CORPUSCULAR HGB 28.7 pg (27.0-31.0); MEAN PLATELET VOLUME 12.3 fl (9.6-12.3); MONO # 0.4 10*3/uL (0.1-1.0); MONO % 4.1 % (3.0-9.0); NEUT # 8.5 10*3/uL (2.3-7.9); NEUT % 82.6 % (47.0-73.0); PLATELET COUNT AUTOMATED 189 10*3/uL (130-400); RED BLOOD COUNT 3.45 10*6/uL (4.10-5.10); RED CELL DISTRI WIDTH 13.7 % (0-14.5); WHITE BLOOD COUNT 10.3 10*3/uL (4.8-10.8)
[2022-03-23 06:40] LABS: BUN 8 mg/dl (7-24); CHLORIDE 112 mmol/L (98-107); CREATININE 0.76 mg/dL (0.55-1.02); POTASSIUM 3.8 mmol/L (3.5-5.1); SODIUM 140 mmol/L (136-145)
[2022-03-23 08:00] VITALS: BP 102/56
[2022-03-23 12:00] VITALS: BP 108/52
[2022-03-23 16:00] VITALS: BP 108/55
[2022-03-23 20:00] VITALS: BP 112/59
[2022-03-24] VITALS: BP 108/45
[2022-03-24 06:07] LABS: BUN 10 mg/dl (7-24); CHLORIDE 110 mmol/L (98-107); CREATININE 0.74 mg/dL (0.55-1.02); POTASSIUM 3.7 mmol/L (3.5-5.1); SODIUM 141 mmol/L (136-145)
[2022-03-24 06:23] LABS: BASO % 0.3 % (0.0-1.0); HEMATOCRIT 29.8 % (37.0-47.0); LYMPH # 1.7 10*3/uL (1.3-4.4); LYMPH % 16.8 % (27.0-41.0); MEAN CELL VOLUME 87.9 fl (81.0-99.0); MEAN CORPUSCULAR HGB 28.6 pg (27.0-31.0); MEAN CORPUSCULAR HGB CONC 32.6 g/dl (33.0-37.0); MEAN PLATELET VOLUME 12.1 fl (9.6-12.3); MONO # 0.6 10*3/uL (0.1-1.0); MONO % 5.6 % (3.0-9.0); NEUT # 7.7 10*3/uL (2.3-7.9); NEUT % 76.8 % (47.0-73.0); PLATELET COUNT AUTOMATED 191 10*3/uL (130-400); RED BLOOD COUNT 3.39 10*6/uL (4.10-5.10); RED CELL DISTRI WIDTH 13.7 % (0-14.5)
[2022-03-24 08:00] VITALS: BP 117/65
[2022-03-24 12:00] VITALS: BP 117/65
[2022-03-24 16:00] VITALS: BP 108/45
[2022-03-24 20:00] VITALS: BP 118/78
[2022-03-25] VITALS: BP 105/59
[2022-03-25 06:21] LABS: BASO % 0.1 % (0.0-1.0); LYMPH # 1.4 10*3/uL (1.3-4.4); LYMPH % 13.1 % (27.0-41.0); MEAN CELL VOLUME 89.3 fl (81.0-99.0); MEAN CORPUSCULAR HGB 28.8 pg (27.0-31.0); MEAN CORPUSCULAR HGB CONC 32.3 g/dl (33.0-37.0); MEAN PLATELET VOLUME 12.7 fl (9.6-12.3); MONO # 0.6 10*3/uL (0.1-1.0); MONO % 5.7 % (3.0-9.0); NEUT # 8.9 10*3/uL (2.3-7.9); NEUT % 80.6 % (47.0-73.0); PLATELET COUNT AUTOMATED 195 10*3/uL (130-400); RED BLOOD COUNT 3.47 10*6/uL (4.10-5.10)
[2022-03-25 08:00] VITALS: BP 118/63
[2022-03-25 12:00] VITALS: BP 114/60
[2022-03-25 16:00] VITALS: BP 116/56
[2022-03-25 20:00] VITALS: BP 112/56
[2022-03-26] VITALS: BP 115/60
[2022-03-26 06:13] LABS: BUN 12 mg/dl (7-24); CHLORIDE 108 mmol/L (98-107); CREATININE 0.73 mg/dL (0.55-1.02); POTASSIUM 3.6 mmol/L (3.5-5.1); SODIUM 141 mmol/L (136-145)
[2022-03-26 06:19] LABS: BASO % 0.2 % (0.0-1.0); EOS % 0.1 % (1.0-4.0); HEMATOCRIT 33.4 % (37.0-47.0); LYMPH % 16.3 % (27.0-41.0); MEAN CORPUSCULAR HGB 28.4 pg (27.0-31.0); MEAN CORPUSCULAR HGB CONC 32.6 g/dl (33.0-37.0); MEAN PLATELET VOLUME 11.7 fl (9.6-12.3); MONO # 0.8 10*3/uL (0.1-1.0); MONO % 6.4 % (3.0-9.0); NEUT # 9.2 10*3/uL (2.3-7.9); NEUT % 76.3 % (47.0-73.0); PLATELET COUNT AUTOMATED 202 10*3/uL (130-400); RED BLOOD COUNT 3.84 10*6/uL (4.10-5.10); RED CELL DISTRI WIDTH 13.9 % (0-14.5); WHITE BLOOD COUNT 12.1 10*3/uL (4.8-10.8)
[2022-03-26 08:00] VITALS: BP 114/74
[2022-03-26 12:00] VITALS: BP 116/70
[2022-03-26] MEDS ORDERED: METRONIDAZOLE500 M1 PO (13:37)
[2022-03-26] MEDS ORDERED: PREDNISONE10 MG PO (13:37)
[2022-03-26] MEDS ORDERED: Ondansetron4 MG PO (13:37)
== END 2022-03-26 15:44 | disposition home or self-care (01) | DRG 387 ==
LOC: ED 18:02 → 5E 21:57 → EDHOLD 21:57 → 5E 23:50
PROVIDERS: Internal Medicine; Physician Assistant; Student in an Organized Health Care Education/Training Program; ADMIT Internal Medicine; ATTEND Internal Medicine
DX: K51.919 Ulcerative colitis, unspecified with unspecified complications (principal); D72.829 Elevated white blood cell count, unspecified; R73.9 Hyperglycemia, unspecified; E87.8 Other disorders of electrolyte and fluid balance, not elsewhere classified; K57.30 Diverticulosis of large intestine without perforation or abscess without bleeding; Z88.0 Allergy status to penicillin; Z88.8 Allergy status to other drugs, medicaments and biological substances; Z88.1 Allergy status to other antibiotic agents; Z91.041 Radiographic dye allergy status; Z82.49 Family history of ischemic heart disease and other diseases of the circulatory system

== ENCOUNTER 2022-06-29 13:45 | Emergency (ER) | payer SELFPAY ==
[~2022-06-29] VITALS: Ht 162.5 cm; Wt 59.0 kg
[~2022-06-29 13:45] MED LIST changes: +METRONIDAZOLE500 M1 PO; +OMEPRAZOLE40 MG PO; +Ondansetron4 MG PO
[2022-06-29 16:58] LABS: BASO # 0.1 10*3/uL (0.0-0.1); BASO % 0.6 % (0.0-1.0); EOS # 0.1 10*3/uL (0.0-0.4); EOS % 1.1 % (1.0-4.0); HEMATOCRIT 33.9 % (37.0-47.0); LYMPH # 1.5 10*3/uL (1.3-4.4); LYMPH % 16.6 % (27.0-41.0); MEAN CELL VOLUME 86.3 fl (81.0-99.0); MEAN CORPUSCULAR HGB 27.5 pg (27.0-31.0); MEAN CORPUSCULAR HGB CONC 31.9 g/dl (33.0-37.0); MEAN PLATELET VOLUME 11.5 fl (9.6-12.3); MONO # 0.5 10*3/uL (0.1-1.0); MONO % 5.4 % (3.0-9.0); NEUT # 6.7 10*3/uL (2.3-7.9); PLATELET COUNT AUTOMATED 187 10*3/uL (130-400); RED BLOOD COUNT 3.93 10*6/uL (4.10-5.10); WHITE BLOOD COUNT 8.8 10*3/uL (4.8-10.8)
[2022-06-29 17:29] LABS: ALKALINE PHOSPHATASE 75 U/L (46-116); BUN 11 mg/dl (9-23); CHLORIDE 106 mmol/L (98-107); CREATININE 0.82 mg/dL (0.55-1.02); LIPASE 53 U/L (12-53); POTASSIUM 3.6 mmol/L (3.4-5.1); SGPT/ALT 19 U/L (10-49); TOTAL PROTEIN 7.5 gm/dL (6.0-8.0)
[2022-06-29] MEDS ORDERED: DAYSEE 0.15-0.1 EAC1 PO (18:07)
[2022-06-29] MEDS ORDERED: NATURE'S BLEND F1 MG PO (18:07)
[2022-06-29] MEDS ORDERED: VITAMIN D250 MCG PO (18:08)
[2022-06-29] MEDS ORDERED: VIBRAMYCIN100 MG PO (20:09)
[2022-06-29] MEDS ORDERED: PREDNISONE20 M1 PO (20:09)
[2022-06-29] MEDS ORDERED: HYDROCODONE-AC1 EAC1 PO (20:10)
== END 2022-06-29 20:13 | disposition home or self-care (01) ==
LOC: ED 13:45
PROVIDERS: Internal Medicine
DX: K52.9 Noninfective gastroenteritis and colitis, unspecified (principal); D64.9 Anemia, unspecified; Z88.0 Allergy status to penicillin; Z88.1 Allergy status to other antibiotic agents; Z91.041 Radiographic dye allergy status; Z79.899 Other long term (current) drug therapy; Z98.51 Tubal ligation status

== ENCOUNTER 2022-08-20 03:25 | Emergency (ER) | payer MEDICAID ==
[~2022-08-20] VITALS: Wt 59.0 kg
[~2022-08-20 03:25] MED LIST changes: +DAYSEE 0.15-0.1 EAC1 PO; +HYDROCODONE-AC1 EAC1 PO; +VITAMIN D250 MCG PO
[2022-08-20 04:01] LABS: BILIRUBIN Negative (Negative); BLOOD Negative (Negative); CLARITY Clear (Clear); COLOR Yellow (Yellow); GLUCOSE Negative (Negative); KETONE Negative (Negative); LEUKO ESTERASE Negative (Negative); NITRITE Negative (Negative); PH 5.5 (4.5-8.0); UROBILINOGEN 0.2 E.U./dl (0.0-1.0)
[2022-08-20 04:23] LABS: EPITHELIAL CELLS 0-2; RBC 0-2 rbc/hpf (0-2); WBC 0-2 wbc/hpf (0-5)
== END 2022-08-20 05:47 | disposition home or self-care (01) ==
LOC: ED 03:25
PROVIDERS: Internal Medicine
DX: K57.30 Diverticulosis of large intestine without perforation or abscess without bleeding (principal); R14.1 Gas pain; K59.00 Constipation, unspecified; N20.0 Calculus of kidney; Z88.0 Allergy status to penicillin; Z88.1 Allergy status to other antibiotic agents; Z91.041 Radiographic dye allergy status; Z88.8 Allergy status to other drugs, medicaments and biological substances; Z98.890 Other specified postprocedural states; Z98.51 Tubal ligation status

== ENCOUNTER 2023-03-16 20:38 | Emergency (ER) | payer MEDICAID ==
[~2023-03-16] VITALS: Ht 162.5 cm; Wt 54.4 kg
[2023-03-16 21:10] LABS: BASO % 0.6 % (0.0-1.0); EOS # 0.2 10*3/uL (0.0-0.4); EOS % 2.5 % (1.0-4.0); HEMATOCRIT 39.4 % (37.0-47.0); LYMPH # 1.6 10*3/uL (1.3-4.4); LYMPH % 24.8 % (27.0-41.0); MEAN CELL VOLUME 92.7 fl (81.0-99.0); MEAN CORPUSCULAR HGB 32.2 pg (27.0-31.0); MEAN CORPUSCULAR HGB CONC 34.8 g/dl (33.0-37.0); MEAN PLATELET VOLUME 9.9 fl (9.6-12.3); MONO # 0.5 10*3/uL (0.1-1.0); NEUT # 4.1 10*3/uL (2.3-7.9); NEUT % 63.3 % (47.0-73.0); PLATELET COUNT AUTOMATED 174 10*3/uL (130-400); RED BLOOD COUNT 4.25 10*6/uL (4.10-5.10); RED CELL DISTRI WIDTH 11.8 % (0-14.5); WHITE BLOOD COUNT 6.5 10*3/uL (4.8-10.8)
[2023-03-16 21:21] LABS: ACT PARTIAL THROMBO TIME 27.5 SECONDS (20.0-32.1)
[2023-03-16 21:28] LABS: ALKALINE PHOSPHATASE 105 U/L (46-116); BUN 12 mg/dl (9-23); CHLORIDE 107 mmol/L (98-107); POTASSIUM 3.9 mmol/L (3.4-5.1); SGPT/ALT 26 U/L (10-49); TOTAL PROTEIN 7.3 gm/dL (6.0-8.0)
[2023-03-16] MEDS ORDERED: REGLAN10 M1 PO (21:42)
[2023-03-16] MEDS ORDERED: OMNICEF300 MG PO (21:42)
== END 2023-03-16 21:51 | disposition home or self-care (01) ==
LOC: ED 20:38
PROVIDERS: Internal Medicine
DX: K08.89 Other specified disorders of teeth and supporting structures (principal); K21.9 Gastro-esophageal reflux disease without esophagitis; Z88.0 Allergy status to penicillin; Z88.1 Allergy status to other antibiotic agents; Z91.041 Radiographic dye allergy status; Z88.8 Allergy status to other drugs, medicaments and biological substances; Z98.890 Other specified postprocedural states

== ENCOUNTER 2023-05-12 16:28 | Emergency (ER) | payer OTHER ==
[~2023-05-12] VITALS: Ht 162.5 cm
[~2023-05-12 16:28] MED LIST changes: +OMNICEF300 MG PO; +REGLAN10 M1 PO
[2023-05-12 16:56] LABS: BASO % 0.5 % (0.0-1.0); EOS # 0.3 10*3/uL (0.0-0.4); EOS % 5.5 % (1.0-4.0); HEMATOCRIT 40.3 % (37.0-47.0); LYMPH # 2.3 10*3/uL (1.3-4.4); LYMPH % 38.7 % (27.0-41.0); MEAN CELL VOLUME 87.8 fl (81.0-99.0); MEAN CORPUSCULAR HGB 30.9 pg (27.0-31.0); MEAN CORPUSCULAR HGB CONC 35.2 g/dl (33.0-37.0); MEAN PLATELET VOLUME 10.8 fl (9.6-12.3); MONO # 0.6 10*3/uL (0.1-1.0); MONO % 9.9 % (3.0-9.0); NEUT # 2.7 10*3/uL (2.3-7.9); NEUT % 45.1 % (47.0-73.0); PLATELET COUNT AUTOMATED 148 10*3/uL (130-400); RED BLOOD COUNT 4.59 10*6/uL (4.10-5.10); RED CELL DISTRI WIDTH 11.6 % (0-14.5)
[2023-05-12 17:26] LABS: ALKALINE PHOSPHATASE 81 U/L (46-116); BUN 11 mg/dl (9-23); CHLORIDE 107 mmol/L (98-107); LIPASE 58 U/L (12-53); POTASSIUM 3.4 mmol/L (3.4-5.1); SGPT/ALT 21 U/L (5-49); TOTAL PROTEIN 7.5 gm/dL (6.0-8.0)
[2023-05-12 19:41] LABS: BILIRUBIN Negative (Negative); BLOOD 2+ (Negative); CLARITY Turbid (Clear); COLOR Yellow (Yellow); GLUCOSE Negative (Negative); KETONE 1+ (Negative); LEUKO ESTERASE 3+ (Negative); NITRITE Negative (Negative); PH 7.5 (4.5-8.0); SPECIFIC GRAVITY 1.025 (1.001-1.030)
[2023-05-12 19:52] LABS: BACTERIA 4+; RBC 21-30 rbc/hpf (0-2); WBC 51-100 wbc/hpf (0-5)
[2023-05-12] MEDS ORDERED: OMNICEF300 MG PO (20:04)
== END 2023-05-12 20:53 | disposition home or self-care (01) ==
LOC: ED 16:28
PROVIDERS: Nurse Practitioner Family
DX: N39.0 Urinary tract infection, site not specified (principal); R33.9 Retention of urine, unspecified; Z88.0 Allergy status to penicillin; Z88.1 Allergy status to other antibiotic agents; Z88.8 Allergy status to other drugs, medicaments and biological substances; Z91.041 Radiographic dye allergy status; Z79.2 Long term (current) use of antibiotics; Z79.899 Other long term (current) drug therapy; Z87.442 Personal history of urinary calculi; Z90.710 Acquired absence of both cervix and uterus

== ENCOUNTER 2023-11-27 12:05 | Emergency (ER) | payer OTHER ==
[~2023-11-27] VITALS: Ht 162.5 cm; Wt 53.5 kg
[2023-11-27 13:10] LABS: BILIRUBIN Negative (Negative); BLOOD 1+ (Negative); CLARITY Clear (Clear); COLOR Yellow (Yellow); GLUCOSE Negative (Negative); KETONE Negative (Negative); LEUKO ESTERASE Trace (Negative); NITRITE Negative (Negative); PH 6.5 (4.5-8.0); SPECIFIC GRAVITY <= 1.005 (1.001-1.030); UROBILINOGEN 0.2 E.U./dl (0.0-1.0)
[2023-11-27] MEDS ORDERED: Ondansetron Hydrochloride 4 MG TAB PO ONE (13:10)
[2023-11-27] MEDS ORDERED: Ketorolac Tromethamine 30 MG/ML VIAL IM ONE (13:10)
[2023-11-27 13:24] LABS: BACTERIA TRACE
[2023-11-27 13:25] LABS: BASO # 0.1 10*3/uL (0.0-0.1); BASO % 0.7 % (0.0-1.0); EOS # 0.4 10*3/uL (0.0-0.4); EOS % 5.5 % (1.0-4.0); HEMATOCRIT 39.3 % (37.0-47.0); LYMPH % 30.3 % (27.0-41.0); MEAN CELL VOLUME 91.4 fl (81.0-99.0); MEAN CORPUSCULAR HGB 30.2 pg (27.0-31.0); MEAN CORPUSCULAR HGB CONC 33.1 g/dl (33.0-37.0); MEAN PLATELET VOLUME 10.1 fl (9.6-12.3); MONO # 0.5 10*3/uL (0.1-1.0); MONO % 7.6 % (3.0-9.0); NEUT # 3.7 10*3/uL (2.3-7.9); NEUT % 55.6 % (47.0-73.0); PLATELET COUNT AUTOMATED 181 10*3/uL (130-400); RED CELL DISTRI WIDTH 12.1 % (0-14.5); WHITE BLOOD COUNT 6.7 10*3/uL (4.8-10.8)
[2023-11-27 13:46] LABS: ALKALINE PHOSPHATASE 69 U/L (46-116); BUN 9 mg/dl (9-23); CHLORIDE 105 mmol/L (98-107); LIPASE 61 U/L (12-53); POTASSIUM 3.7 mmol/L (3.4-5.1); SGPT/ALT 21 U/L (5-49); TOTAL PROTEIN 7.2 gm/dL (6.0-8.0)
[2023-11-27] MEDS ORDERED: COLACE100 MG PO (14:46)
== END 2023-11-27 15:08 | disposition home or self-care (01) ==
LOC: ED 12:05
PROVIDERS: Emergency Medicine; Nurse Practitioner
DX: K59.00 Constipation, unspecified (principal); Z88.0 Allergy status to penicillin; Z91.041 Radiographic dye allergy status; Z79.2 Long term (current) use of antibiotics; Z79.899 Other long term (current) drug therapy; Z98.51 Tubal ligation status

== ENCOUNTER 2024-05-16 20:52 | Emergency (ER) | payer OTHER ==
[~2024-05-16] VITALS: Ht 162.5 cm; Wt 49.4 kg
[~2024-05-16 20:52] MED LIST changes: +COLACE100 MG PO
[2024-05-16] MEDS ORDERED: SODIUM CHLORIDE 0.9% 500 ML IV ONE (21:20)
[2024-05-16] MEDS ORDERED: Ketorolac Tromethamine 15 MG/ML VIAL IV ONE (21:20)
[2024-05-16] MEDS ORDERED: Ondansetron Hydrochloride 4 MG/2 ML VIAL IV ONE (21:20)
[2024-05-16 21:28] LABS: BASO % 0.5 % (0.0-1.0); EOS # 0.4 10*3/uL (0.0-0.4); EOS % 4.5 % (1.0-4.0); HEMATOCRIT 38.4 % (37.0-47.0); MEAN CELL VOLUME 89.7 fl (81.0-99.0); MEAN CORPUSCULAR HGB 30.4 pg (27.0-31.0); MEAN CORPUSCULAR HGB CONC 33.9 g/dl (33.0-37.0); MEAN PLATELET VOLUME 9.8 fl (9.6-12.3); MONO # 0.7 10*3/uL (0.1-1.0); MONO % 8.8 % (3.0-9.0); NEUT # 3.6 10*3/uL (2.3-7.9); PLATELET COUNT AUTOMATED 191 10*3/uL (130-400); RED BLOOD COUNT 4.28 10*6/uL (4.10-5.10); RED CELL DISTRI WIDTH 11.8 % (0-14.5); WHITE BLOOD COUNT 7.8 10*3/uL (4.8-10.8)
[2024-05-16 21:45] LABS: ALKALINE PHOSPHATASE 75 U/L (46-116); BUN 12 mg/dl (9-23); CHLORIDE 105 mmol/L (98-107); LIPASE 54 U/L (12-53); POTASSIUM 3.8 mmol/L (3.4-5.1); SGPT/ALT 15 U/L (5-49); TOTAL PROTEIN 7.3 gm/dL (6.0-8.0)
[2024-05-16 22:03] LABS: BILIRUBIN Negative (Negative); BLOOD 3+ (Negative); CLARITY Cloudy (Clear); COLOR Yellow (Yellow); GLUCOSE Negative (Negative); KETONE Negative (Negative); LEUKO ESTERASE Negative (Negative); NITRITE Negative (Negative); SPECIFIC GRAVITY <= 1.005 (1.001-1.030); UROBILINOGEN 0.2 E.U./dl (0.0-1.0)
[2024-05-16 22:10] LABS: EPITHELIAL CELLS 41-50
[2024-05-16 22:11] LABS: BACTERIA 1+; RBC 41-50 rbc/hpf (0-2); WBC 0-2 wbc/hpf (0-5)
== END 2024-05-17 00:54 | disposition home or self-care (01) ==
LOC: ED 20:52
PROVIDERS: Nurse Practitioner
DX: K92.1 Melena (principal); R11.2 Nausea with vomiting, unspecified; R42 Dizziness and giddiness; K21.9 Gastro-esophageal reflux disease without esophagitis; Z88.0 Allergy status to penicillin; Z88.1 Allergy status to other antibiotic agents; Z88.8 Allergy status to other drugs, medicaments and biological substances; Z91.041 Radiographic dye allergy status; Z98.890 Other specified postprocedural states; Z98.51 Tubal ligation status; Z79.899 Other long term (current) drug therapy

== ENCOUNTER 2024-07-08 21:07 | Emergency (ER) | payer OTHER ==
[~2024-07-08] VITALS: Ht 162.5 cm; Wt 52.8 kg
[2024-07-08] MEDS ORDERED: SODIUM CHLORIDE 0.9% 1,000 ML IV ONE (21:45)
[2024-07-08 22:41] LABS: BUN 11 mg/dl (9-23); CHLORIDE 103 mmol/L (98-107); POTASSIUM 3.9 mmol/L (3.4-5.1)
[2024-07-08 22:53] LABS: BILIRUBIN Negative (Negative); BLOOD Negative (Negative); CLARITY Clear (Clear); COLOR Yellow (Yellow); GLUCOSE Negative (Negative); KETONE Negative (Negative); LEUKO ESTERASE Negative (Negative); NITRITE Negative (Negative); PH 7.5 (4.5-8.0); SPECIFIC GRAVITY <= 1.005 (1.001-1.030); UROBILINOGEN 0.2 E.U./dl (0.0-1.0)
[2024-07-08 23:30] LABS: WBC 0-2 wbc/hpf (0-5)
[2024-07-08 23:44] LABS: BASO % 0.4 % (0.0-1.0); EOS # 0.1 10*3/uL (0.0-0.4); EOS % 1.7 % (1.0-4.0); HEMATOCRIT 34.9 % (37.0-47.0); MEAN CORPUSCULAR HGB 30.4 pg (27.0-31.0); MEAN CORPUSCULAR HGB CONC 34.1 g/dl (33.0-37.0); MEAN PLATELET VOLUME 11.2 fl (9.6-12.3); MONO # 0.6 10*3/uL (0.1-1.0); MONO % 8.1 % (3.0-9.0); NEUT # 4.7 10*3/uL (2.3-7.9); NEUT % 63.1 % (47.0-73.0); PLATELET COUNT AUTOMATED 169 10*3/uL (130-400); RED BLOOD COUNT 3.92 10*6/uL (4.10-5.10); RED CELL DISTRI WIDTH 12.2 % (0-14.5); WHITE BLOOD COUNT 7.5 10*3/uL (4.8-10.8)
[2024-07-09] MEDS ORDERED: Metoclopramide Hydrochloride 5 MG TAB PO ONE (00:40)
[2024-07-09] MEDS ORDERED: REGLAN10 M1 PO (00:47)
== END 2024-07-09 00:47 | disposition home or self-care (01) ==
LOC: ED 21:07
PROVIDERS: Nurse Practitioner Family
DX: R51.9 Headache, unspecified (principal); H53.8 Other visual disturbances; M79.10 Myalgia, unspecified site; E78.00 Pure hypercholesterolemia, unspecified; D64.9 Anemia, unspecified; K21.9 Gastro-esophageal reflux disease without esophagitis; Z88.0 Allergy status to penicillin; Z88.1 Allergy status to other antibiotic agents; Z91.041 Radiographic dye allergy status; Z88.8 Allergy status to other drugs, medicaments and biological substances; Z98.890 Other specified postprocedural states; Z98.51 Tubal ligation status

== ENCOUNTER 2024-12-27 19:12 | Emergency (ER) | payer OTHER ==
[~2024-12-27] VITALS: Ht 160 cm; Wt 59.0 kg
[2024-12-27] MEDS ORDERED: SODIUM CHLORIDE 0.9% 1,000 ML IV ONE (19:35)
[2024-12-27] MEDS ORDERED: Ketorolac Tromethamine 30 MG/ML VIAL IV ONE (19:35)
[2024-12-27] MEDS ORDERED: Ondansetron Hydrochloride 4 MG/2 ML VIAL IV ONE (19:35)
== END 2024-12-27 21:09 | disposition home or self-care (01) ==
LOC: ED 19:12
DX: R51.9 Headache, unspecified (principal); R20.0 Anesthesia of skin; R20.2 Paresthesia of skin; Z88.0 Allergy status to penicillin; Z88.1 Allergy status to other antibiotic agents; Z91.041 Radiographic dye allergy status

== ENCOUNTER 2025-03-30 20:16 | Emergency (ER) | payer OTHER ==
[~2025-03-30] VITALS: Ht 162.5 cm; Wt 56.7 kg
[2025-03-30] MEDS ORDERED: GABARONE100 M1 PO (20:35)
[2025-03-30 21:27] LABS: BASO # 0.1 10*3/uL (0.0-0.1); BASO % 0.7 % (0.0-1.0); EOS # 0.4 10*3/uL (0.0-0.4); EOS % 4.8 % (1.0-4.0); MEAN CELL VOLUME 90.9 fl (81.0-99.0); MEAN CORPUSCULAR HGB 29.7 pg (27.0-31.0); MEAN PLATELET VOLUME 10.4 fl (9.6-12.3); MONO # 0.6 10*3/uL (0.1-1.0); MONO % 8.6 % (3.0-9.0); NEUT # 4.1 10*3/uL (2.3-7.9); NEUT % 56.6 % (47.0-73.0); NUCLEATED RED BLOOD CELL 0.0 % (0.0-0.0); NUCLEATED RED BLOOD CELL 0.0 10*3/uL (0.0-0.0); PLATELET COUNT AUTOMATED 192 10*3/uL (130-400); RED CELL DISTRI WIDTH 12.0 % (0-14.5)
[2025-03-30 21:46] LABS: BUN 15 mg/dl (9-23)
[2025-03-30] MEDS ORDERED: MEDROL DOSEPAK4 MG PO (23:33)
[2025-03-30] MEDS ORDERED: VIBRAMYCIN100 MG PO (23:33)
== END 2025-03-30 23:44 | disposition home or self-care (01) ==
LOC: ED 20:16
PROVIDERS: Internal Medicine
DX: J40 Bronchitis, not specified as acute or chronic (principal); K21.9 Gastro-esophageal reflux disease without esophagitis; Z88.0 Allergy status to penicillin; Z88.1 Allergy status to other antibiotic agents; Z88.8 Allergy status to other drugs, medicaments and biological substances